=== PATIENT | male | born 1970 | race Two or more races ===

== ENCOUNTER 2024-11-25 11:01 | Outpatient (CLI) | payer OTHER | END 2024-11-25 11:17 | disposition home or self-care (01) | LOC: MRI 11:01 | PROVIDERS: ATTEND General Practice | DX: C71.9 Malignant neoplasm of brain, unspecified (principal) | CPT/HCPCS: 70553 ==

== ENCOUNTER 2025-02-04 07:42 | Outpatient (CLI) | payer OTHER | END 2025-02-04 07:45 | disposition home or self-care (01) | LOC: RAD 07:42 | DX: R10.2 Pelvic and perineal pain (principal); R10.9 Unspecified abdominal pain; N20.0 Calculus of kidney; N28.1 Cyst of kidney, acquired; I11.9 Hypertensive heart disease without heart failure; N40.0 Benign prostatic hyperplasia without lower urinary tract symptoms; E78.2 Mixed hyperlipidemia ==